=== PATIENT | female | born 1940 | race Caucasian/White ===

== ENCOUNTER 2018-07-30 12:07 | Day surgery (SDC) | payer MEDICARE, BC ==
[~2018-07-30] VITALS: Ht 162.6 cm; Wt 93.0 kg
[~2018-07-30 12:07] MED LIST: ASPI-496 PO; ATEN50TA41 PO; BENA20TA54 PO; CLOP75TA52 PO; DEXL60CA2 PO; GABA300C PO; GEMF600T8 PO; INSU100V13 SC; LEVO150T61 PO; MELO7.5T5 PO; METF500T17 PO; NITR50CA PO; PRAV20TA PO; TICA90TA PO
[2018-07-30] MEDS ORDERED: DIPHENHYDRAMINE 50 MG/ML, 1ML IVPush ONE (15:00)
[2018-07-30] MEDS ORDERED: DIPHENHYDRAMINE 50 MG/ML, 1ML ONE (15:11)
[2018-07-30] MEDS ORDERED: CYCL-259 PO (15:12)
[2018-07-30] MEDS ORDERED: NPH,100V SQ (15:12)
[2018-07-30] MEDS ORDERED: FURO20TA3 PO (15:12)
[2018-07-30] MEDS ORDERED: ATEN50TA41 PO (15:12)
[2018-07-30] MEDS ORDERED: ESCI10TA PO (15:12)
[2018-07-30] MEDS ORDERED: PRAM0.255 PO (15:12)
[2018-07-30] MEDS ORDERED: BENA20TA54 PO (15:12)
[2018-07-30] MEDS ORDERED: LOPE2CAP PO (15:12)
[2018-07-30] MEDS ORDERED: MULT1TAB57 PO (15:12)
[2018-07-30 15:20] LABS: ANION GAP 3 mmol/L (5-15); CALCIUM 9.1 mg/dL (8.5-10.1); CHLORIDE 110 mmol/L (98-107); CREATININE 1.01 mg/dL (0.55-1.02)
[2018-07-30] MEDS ORDERED: FENTANYL PF 100 MCG/2ML ONE (15:26)
[2018-07-30] MEDS ORDERED: MIDAZOLAM 1 MG/ML, 5ML ONE (15:26)
[2018-07-30] MEDS ORDERED: LIDOCAINE 2%, 20ML ONE (15:27)
[2018-07-30] MEDS ORDERED: HEPARIN 1,000 UNITS/ML, 10ML ONE (15:27)
[2018-07-30] MEDS ORDERED: VERAPAMIL 2.5 MG/ML, 2ML ONE (15:27)
[2018-07-30] MEDS ORDERED: methylPREDNISolone SOD SUCC 125 MG/2 ML ONE (15:32)
[2018-07-30] MEDS ORDERED: SODIUM CHLORIDE 0.9% IV ONE (16:00)
[2018-07-30] MEDS ORDERED: ADENOSINE IV ONE (16:00)
[2018-07-30] MEDS ORDERED: AMLO2.5T2 PO (17:27)
== END 2018-07-30 18:03 | disposition home or self-care (01) ==
LOC: CACL 12:07
PROVIDERS: ATTEND Internal Medicine Cardiovascular Disease
DX: I27.20 Pulmonary hypertension, unspecified (principal); J44.9 Chronic obstructive pulmonary disease, unspecified; Z87.891 Personal history of nicotine dependence; Z88.8 Allergy status to other drugs, medicaments and biological substances; Z88.1 Allergy status to other antibiotic agents; Z91.041 Radiographic dye allergy status; Z86.14 Personal history of Methicillin resistant Staphylococcus aureus infection
CPT/HCPCS: 36415; 80048; 93451; 99156; 99157; C1894; J0153; J1200; J2250; J3010; J1644; J3490; J2930